=== PATIENT | male | born 1945 | race Caucasian/White ===

== ENCOUNTER 2016-07-12 19:53 | Emergency (ER) | payer MEDICARE ==
[2016-07-12 20:25] VITALS: BP 137/50
[2016-07-12] MEDS ORDERED: Ipratropium 0.5MG/2.5ML NEB* 0.5 MG/2.5 ML NEB.SOLN INH ONE (20:40)
[2016-07-12] MEDS ORDERED: DOXYcycline CAP(*) 100 MG PO ONE (20:40)
[2016-07-12] MEDS ORDERED: methylPREDNISolone 125 MG* 2 ML VIAL IM ONE (20:40)
--- NOTE | 2016-07-12 20:40 | UC ---
Respiratory Complaint HPI - History of Current Complaint Chief Complaint: UCRespiratory Stated Complaint: COUGH Time Seen by Provider: 07/12/16 20:30 Hx Obtained From: Patient Onset/Duration: Sudden Onset, Still Present Timing: Constant Severity Initially: Moderate Severity Currently: Severe Character: Cough: Nonproductive Aggravating Factors: Deep Breaths Alleviating Factors: Bronchodilator - home nebulizer Associated Signs And Symptoms: Positive: Dyspnea, Wheezing, URI, Hoarseness - Risk Factors Pseudomonas Risk Factors: Chronic Lung Disease - Allergies/Home Medications Allergies/Adverse Reactions: Allergies Allergy/AdvReac Type Severity Reaction Status Date / Time Penicillins Allergy Unknown See Comment Verified 07/12/16 20:25 Home Medications: Home Medications Menthol (Mouth-Throat) [Cough Drops] 7 mg MT DAILY PRN 07/12/16 [History Confirmed 07/12/16] Probiotic Product [Probiotic Daily] 1 cap PO DAILY 07/12/16 [History Confirmed 07/12/16] PMH/Surg Hx/FS Hx/Imm Hx Respiratory History Of: Reports: COPD, Asthma GI/ History Of: Comment Only: Renal Disease - Too much Protein - Surgical History Surgical History: Yes Surgery Procedure, Year, and Place: 1999 lower back surgery - Family History Known Family History: Negative: Cardiac Disease, Hypertension, Diabetes - Social History Occupation: Retired Lives: With Family Alcohol Use: Rare Substance Use Type: None Smoking Status (MU): Former Smoker Amount Used/How Often: 1 ppd Length of Time of Smoking/Using Tobacco: 56 YRS Have You Smoked in the Last Year: Yes When Did the Patient Quit Smoking/Using Tobacco: 06/17/14 Review of Systems ENT: Sore Throat Respiratory: Shortness Of Breath, Cough All Other Systems Reviewed And Are Negative: Yes Physical Exam Triage Information Reviewed: Yes Appearance: No Pain Distress, Well-Nourished, Ill-Appearing Vital Signs: Initial Vital Signs Temp 98.9 F 07/12/16 20:18 Pulse 92 07/12/16 20:18 Resp 16 07/12/16 20:18 BP 137/50 07/12/16 20:18 Pulse Ox 93 07/12/16 20:18 Vital Signs Reviewed: Yes Eyes: Positive: Conjunctiva Clear ENT: Positive: Pharynx normal, Nasal congestion, TMs normal Neck exam: Normal Respiratory: Positive: Rhonchi - scattered inspiratory, Wheezing - diffuse exp. Cardiovascular Exam: Normal Musculoskeletal Exam: Normal Neurological Exam: Normal Psychological Exam: Normal Skin Exam: Normal UC Diagnostic Evaluation - Laboratory O2 Sat by Pulse Oximetry: 93 Re-Evaluation - Re-Evaluation First Eval Re-Evaluation Time: 21:16 Change: Improved - moving air better. Less wheezing Respiratory Course/Dx - Differential Dx/Diagnosis Differential Diagnosis/HQI/PQRI: Asthma, Exacerbation Of COPD, Lower Resp Infection Provider Diagnoses: COPD with acute exacerbation Discharge - Discharge Plan Condition: Stable Disposition: HOME Prescriptions: Benzonatate 200 mg PO TID PRN #30 cap PRN Reason: Cough DOXYcycline CAP(*) [DOXYcycline 100MG CAP(*)] 100 mg PO BID #20 cap Ipratropium 0.5MG/2.5ML NEB* [Atrovent 0.5 MG NEB.FELIPA*] 0.5 mg INH Q6H PRN #25 vial PRN Reason: Sob/Wheezing predniSONE TAB* [Deltasone TAB*] 20 mg PO DAILY #18 tab Patient Education Materials: COPD (Chronic Obstructive Pulmonary Disease) (ED) , Prednisone (By mouth), Doxycycline (By mouth), Ipratropium (By breathing), Benzonatate (By mouth) Referrals: Tigist Diaz PA [Primary Care Provider] - 2 Weeks
[2016-07-12] MEDS ORDERED: Benzonatate CAP* 100 MG PO ONE (20:42)
[2016-07-12] MEDS ORDERED: DOXYcycline CAP(*) 100 MG ONE (20:46)
== END 2016-07-12 21:36 | disposition home or self-care (01) ==
LOC: UCCORT 19:53
DX: J44.1 Chronic obstructive pulmonary disease with (acute) exacerbation (principal); Z88.0 Allergy status to penicillin; Z87.891 Personal history of nicotine dependence
CPT/HCPCS: 96372; 99212; A9270-GY; G0463; J2930; J7644

== ENCOUNTER 2017-07-12 08:24 | Day surgery (SDC) | payer MEDICARE ==
[~2017-07-12 08:24] MED LIST: Bupivacaine 0.25% SDV* 30 ML ONE
[2017-07-12] MEDS ORDERED: Bupivacaine 0.25% SDV* 30 ML ONE (10:07)
[2017-07-12] MEDS ORDERED: Lidocaine 1% INJ* 10 MG/ML 30 ML SDV ONE (10:07)
[2017-07-12 10:55] VITALS: BP 123/63
--- NOTE | 2017-07-13 14:48 | OP ---
DATE OF OPERATION: 07/12/17 - [facility] DATE OF : 41 SURGEON: Sherif Hill MD ANTENNA INSTALLER: IRAIS Shafer ANESTHESIOLOGIST: None. ANESTHESIA: Local with digital block performed via 0.25% plain Marcaine. PRE-OP DIAGNOSIS: Left long finger mass. POST-OP DIAGNOSIS: Left long finger mass. OPERATIVE PROCEDURE: Excision of left long finger mass. INDICATIONS: Wilmer has had the mass that has slowly enlarged over the last couple of years. It is over the dorsal radial aspect of the PIP joint. I talked to him about the options of what it could be, including ganglion cyst versus other masses. He wanted to proceed with mass excision as it was quite large. ESTIMATED BLOOD LOSS: 1 mL. COMPLICATIONS: None. FINDINGS: As expected. DESCRIPTION OF PROCEDURE: Wilmer was seen in the preoperative holding area. We had a time-out. I performed a digital block with 0.25% plain Marcaine. We came back to the operating room. The arm was prepped and draped in the usual sterile fashion. A time-out was performed. I exsanguinated the finger with the Tourni-Cot and this was left proximally as a tourniquet throughout the procedure. I made a curvilinear incision over the dorsal radial aspect of the PIP joint of the left middle finger. Skin flap was raised off of the mass. It did have the appearance of a ganglion. A marginal excision was performed. It was taken right down to that dorsal radial aspect of the PIP joint and it was amputated where it came off of the joint. I cauterized the area with the bipolar cautery. Once it was completely cauterized , I had him open and close the hand multiple times. The finger was moving normally. Wound was irrigated out. Skin was closed with 4-0 nylon suture. It was dressed with Xeroform, 1 inch Monique, and Coban dressing. Tourniquet was cut off. Finger pinked up. He was taken to the recovery room in stable condition. [id number]/[facility] #: [id number] MTDD
== END 2017-07-12 11:11 | disposition home or self-care (01) ==
LOC: OR 08:24
PROVIDERS: ATTEND Orthopaedic Surgery Hand Surgery
DX: M67.442 Ganglion, left hand (principal); J44.9 Chronic obstructive pulmonary disease, unspecified; K57.92 Diverticulitis of intestine, part unspecified, without perforation or abscess without bleeding; Z87.891 Personal history of nicotine dependence
CPT/HCPCS: 88304

== ENCOUNTER 2019-04-13 13:27 | Emergency (ER) | payer MEDICARE ==
--- OUTSIDE RECORDS SUMMARY | 2019-04-13 13:59 | XMS REPORT | Continuity of Care Document ---
:1945 External Reference #:[id number] Author Name IRAIS Estrada (transmitted by agent of provider Akash Jorge) Address [address] [place] [address] Care Team Providers Name Role Phone Tigist Diaz PA - Physician Parts Interpreter Care Team Information Netbackup Administrator [phone] Tigist Diaz PA - Physician Parts Interpreter Care Team Information Netbackup Administrator [phone] David Fernandez M.D. - Internal Care Team Information Netbackup Administrator [phone] Medicine Problems Active Problems Provider Date Chronic obstructive lung disease Onset: 07/28/2016 Gout Onset: 01/08/2012 Arthralgia of the ankle and/or foot Onset: 01/08/2012 Osteomyelitis Onset: 01/08/2012 Diverticulitis of colon Onset: 01/08/2012 Hematuria syndrome Onset: 01/08/2012 Benign prostatic hypertrophy without Onset: 01/08/2012 outflow obstruction Atopic dermatitis IRAIS Estrada Onset: 08/29/2018 Type 2 diabetes mellitus IRAIS Estrada Onset: 08/29/2018 Impacted cerumen IRAIS Estrada Onset: 08/29/2018 Diarrhea IRAIS Estrada Onset: 08/29/2018 Candidiasis IRAIS Estrada Onset: 08/29/2018 Sleep apnea IRAIS Estrada Onset: 08/29/2018 Cholesteatoma of external ear Sudhakar Elizabeth M.D. Onset: 10/11/2018 Leukoplakia of oral mucosa Sudhakar Elizabeth M.D. Onset: 10/11/2018 Proteinuria IRAIS Estrada Onset: 11/29/2018 Social History Type Date Description Comments Sex Unknown Tobacco Use Start: Unknown End: Former Cigarette Smoker Unknown Tobacco Use Start: Unknown End: Former Cigarette Smoker Unknown 1 Pack Daily Cigarette Use Pack Years - 53 Tobacco Use Start: Unknown Never Smoked Cigars Tobacco Use Start: Unknown Never Smoked A Pipe Smokeless Tobacco Never Used Smokeless Tobacco ETOH Use Drinks Alcoholic Beverages Occasionally ETOH Use Denies alcohol use Tobacco Use Start: Unknown End: Patient is a former Unknown smoker Recreational Drug Use Denies Drug Use Tobacco Use Start: Unknown End: Patient is a former Start Date: 1959 Unknown smoker End Date: 06/17/2014 Recreational Drug Use Never Used Drugs Smoking Status Reviewed: 02/22/19 Patient is a former Start Date: 1959 smoker End Date: 06/17/2014 Exercise Type/Frequency Does not exercise Exercise Type/Frequency Exercises rarely Allergies, Adverse Reactions, Alerts Active Allergies Reaction Severity Comments Date [facility] 06/24/2018 Medications Active Medications SIG Qnty Indications Ordering Date Provider Lisinopril 1 by mouth every 90Tablet E11.9 [place] 11/29/2018 2.5mg day MD Dianne Tablets Pravastatin Sodium 1 by mouth every 90tabs E11.9 [place] 11/29/2018 10mg day MD Dianne Tablets Neomycin/Polymyxin/Hy 5 gtts Left ear 10ml [facility] 10/25/2018 drocortisone (Otic) bid Edie Elizabeth [id number] Solution Cholestyramine Take One Packet 120units K31.89 [place] 12/27/2017 4gm Mixed In Fluid By MD Dianne Packet Mouth Once Daily For 2 Weeks, Then One Packet Twice A Day Mometasone Furoate apply to affected 45units L30.[address] [facility] 11/24/2016 0.1% area twice a day Edie Elizabeth Cream for 5- 7 days as needed for dermatitis Omeprazole 1 by mouth every 90caps Mo 08/28/2015 20mg day MD Dianne Capsules DR Albuterol Sulfate via neb four 50units Dianne, 08/28/2014 times a day & as MD Mo (2.5mg/3ML) 0.083% needed Nebulizer Fluticasone 2 puffs each nare 1units J30.89 Dianne, 04/30/2014 Propionate every in the MD Mo 50mcg/Act morning Suspension Allopurinol 1 by mouth every 30tabs M10.9 Dianne, 12/28/2011 300mg day MD Mo Tablets Ipratropium [place] Inhale 1 Vial Via Unknown Nebulizer Every 6 0.02% Solution Hours as Needed For Wheezing For Terazosin HCL Take One Capsule Unknown 5mg By Mouth Every Capsules Day Finasteride Take One Tablet Unknown 5mg Tablets By Mouth Every Day History Medications Diflucan 1 by mouth every 3tabs Mo Dean, 09/14/2018 - 150mg day 10/08/2018 Tablets Nystatin one teaspoon each 473ml B37.89 Mo Dean, 08/29/2018 - side of mouth 10/08/2018 [id number] three times day Suspension swished and swallowed as directed for thrush Immunizations CPT Code Status Date Vaccine Lot # [id number] Given 04/30/2014 Pneumococcal Conjugate Vaccine 13 Valent For Intramuscular Use 34859 Given 01/02/2008 Tetanus And Diptheria (Td) For Adult Use Preservative Free [id number] Refused 04/14/2018 Fluzone High Dose Vital Signs Date Vital Result Comment 02/22/2019 9:21am Weight 228.19 lb BP Systolic Sitting 118 mmHg BP Diastolic Sitting 58 mmHg 12/27/2018 9:16am Height 68 inches 5'8" Weight 230.00 lb Heart Rate 70 /min BP Systolic 138 mmHg BP Diastolic 70 mmHg Pain Level 0 BMI (Body Mass Index) 35.0 kg/m2 Results Test Date Facility Test Result H/L Range Note Basic Metabolic 02/16/2019 [facility] Sodium 141 mmol/L Normal 135-145 Panel [address] [place] [address] [phone] Potassium 4.3 mmol/L Normal 3.5-5.0 Chloride 106 mmol/L Normal 101-111 Co2 Carbon Dioxide 30 mmol/L Normal 22-32 Anion Gap 5 mmol/L Normal 2-11 Glucose 129 mg/dL High 70-100 Blood Urea Nitrogen 18 mg/dL Normal 6-24 Creatinine 1.04 mg/dL Normal 0.67-1.17 BUN/Creatinine Ratio 17.3 Normal 8-20 Calcium 9.0 mg/dL Normal 8.6-10.3 Egfr Non- 69.6 >60 Egfr 84.2 >60 1 Urine Microalbumin 02/16/2019 [facility] Ur Microalbumin 21.3 mg /L Random [address] (mg/L) [place] [address] [phone] Urine Creatinine 111.12 mg/dL Urine Microalbumin/Creatinine 19.1 Normal <31 Lipid Profile 02/16/2019 [facility] Triglycerides 138 mg/dL 2 (Trig/Chol/HDL) [address] [place] [address] [phone] Cholesterol 136 mg/dL 3 HDL Cholesterol 36.3 mg/dL 4 LDL Cholesterol 72 mg/dL 5 Liver Function 02/16/2019 [facility] Total Protein 6.4 g/dL Normal 6.4-8.[address] [place] [address] [phone] Albumin 4.0 g/dL Normal 3.2-5.2 Globulin 2.4 g/dL Normal 2-4 Albumin/Globulin Ratio 1.7 Normal 1-3 Total Bilirubin 0.40 mg/dL Normal 0.2-1.0 Direct Bilirubin 0.10 mg/dL Normal 0.03-0.18 Indirect Bilirubin 0.3 mg/dL Normal 0.3-1.0 Alkaline Phosphatase 89 U/L Normal 34-104 Alt 15 U/L Normal 7-52 Ast 12 U/L Low 13-39 Basic Metabolic 11/22/2018 [facility] Sodium 139 mmol/L Normal 135-[address] [place] [address] [phone] Potassium 4.3 mmol/L Normal 3.5-5.0 Chloride 106 mmol/L Normal 101-111 Co2 Carbon Dioxide 27 mmol/L Normal 22-32 Anion Gap 6 mmol/L Normal 2-11 Glucose 134 mg/dL High 70-100 Blood Urea Nitrogen 20 mg/dL Normal 6-24 Creatinine 1.12 mg/dL Normal 0.67-1.17 BUN/Creatinine Ratio 17.9 Normal 8-20 Calcium 9.1 mg/dL Normal 8.6-10.3 Egfr Non- 63.9 >60 Egfr 77.3 >60 6 CBC Auto 11/22/2018 [facility] White Blood 10.2 10^3/uL Normal 3.5-10.[address] [place] [address] [phone] Red Blood Count 4.50 10^6/uL Normal 4.18-5.48 Hemoglobin 13.6 g/dL Low 14.0-18.0 Hematocrit 41 % Low 42-52 Mean Corpuscular Volume 92 fL Normal 80-94 Mean Corpuscular Hemoglobin 30 pg Normal 27-31 Mean Corpuscular HGB Conc 33 g/dL Normal 31-36 Red Cell Distribution Width 15 % Normal 10.5-15 Platelet Count 227 10^3/uL Normal 150-450 Mean Platelet Volume 10.6 fL High 7.4-10.4 Abs Neutrophils 7.4 10^3/uL Normal 1.5-7.7 Abs Lymphocytes 1.5 10^3/uL Normal 1.0-4.8 Abs Monocytes 0.9 10^3/uL High 0-0.8 Abs Eosinophils 0.3 10^3/uL Normal 0-0.6 Abs Basophils 0.0 10^3/uL Normal 0-0.2 Abs Nucleated RBC 0.0 10^3/uL Granulocyte % 72.5 % Lymphocyte % 15.1 % Monocyte % 8.8 % Eosinophil % 3.3 % Basophil % 0.3 % Nucleated Red Blood Cells % 0.1 Laboratory test 11/22/2018 [facility] Hemoglobin A1c 6.8 % High 4.0-5.6 7 finding 101 (Glyco HGB) [place] [address] [phone] Liver Function 11/22/2018 [facility] Total Protein 6.4 g/dL Normal 6.4-8.9 Panel [address] [place] [address] [phone] Albumin 4.0 g/dL Normal 3.2-5.2 Globulin 2.4 g/dL Normal 2-4 Albumin/Globulin Ratio 1.7 Normal 1-3 Total Bilirubin 0.40 mg/dL Normal 0.2-1.0 Direct Bilirubin 0.10 mg/dL Normal 0.03-0.18 Indirect Bilirubin 0.3 mg/dL Normal 0.3-1.0 Alkaline Phosphatase 93 U/L Normal 34-104 Alt 15 U/L Normal 7-52 Ast 14 U/L Normal 13-39 Lipid Profile 11/22/2018 [facility] Triglycerides 103 mg/dL 8 (Trig/Chol/HDL) [address] [place] [address] [phone] Cholesterol 141 mg/dL 9 HDL Cholesterol 39.7 mg/dL 10 LDL Cholesterol 81 mg/dL 11 Urine Microalbumin 11/22/2018 [facility] Ur Microalbumin 45.5 mg /L Random [address] (mg/L) [place] [address] [phone] Urine Creatinine 114.68 mg/dL Urine Microalbumin/Creatinine 39.6 High <31 Uric Acid 24HR Urine 11/22/2018 [facility] Uric Acid, U 147 mg/ 24h [address] [place] [address] [phone] Collection Duration 24 h Urine Volume 775 mL Uric Acid Concentration 19 mg/dL 13 1 Because ethnic data is not always readily available, this report includes an eGFR for both -Americans and non- Americans. The National Kidney Disease Education Program (NKDEP) does not endorse the use of the MDRD equation for patients that are not between the ages of 18 and 70, are , have extremes of body size, muscle mass, or nutritional status, or are non- or non-. According to the National Kidney Foundation, irrespective of diagnosis, the stage of the disease is based on the level of kidney function: Stage Description GFR(mL/min/1.73 m(2)) 1 Kidney damage with normal or decreased GFR 90 2 Kidney damage with mild decrease in GFR 60-89 3 Moderate decrease in GFR 30-59 4 Severe decrease in GFR 15-29 5 Kidney failure <15 (or dialysis) 2 Desirable: <150 Borderline High: 150-199 High: 200-499 Very High: >500 3 Desirable: <200 Borderline High: 200-239 High: >239 4 Low: <40 Desirable: 40-60 High: >60 5 Desirable: <100 Near Optimal: 100-129 Borderline High: 130-159 High: 160-189 Very High: >189 6 Because ethnic data is not always readily available, this report includes an eGFR for both -Americans and non- Americans. The National Kidney Disease Education Program (NKDEP) does not endorse the use of the MDRD equation for patients that are not between the ages of 18 and 70, are , have extremes of body size, muscle mass, or nutritional status, or are non- or non-. According to the National Kidney Foundation, irrespective of diagnosis, the stage of the disease is based on the level of kidney function: Stage Description GFR(mL/min/1.73 m(2)) 1 Kidney damage with normal or decreased GFR 90 2 Kidney damage with mild decrease in GFR 60-89 3 Moderate decrease in GFR 30-59 4 Severe decrease in GFR 15-29 5 Kidney failure <15 (or dialysis) 7 Therapeutic target for the treatment of diabetes mellitus patients is <7% HBA1C, and in selective patients <6.0%. Please refer to [place] [employer] Association diabetic care guidelines for further information. 8 Desirable: <150 Borderline High: 150-199 High: 200-499 Very High: >500 9 Desirable: <200 Borderline High: 200-239 High: >239 10 Low: <40 Desirable: 40-60 High: >60 11 Desirable: <100 Near Optimal: 100-129 Borderline High: 130-159 High: 160-189 Very High: >189 12 REFERENCE VALUE <750 (Diet-Dependent) ADDITIONAL INFORMATION This test has been modified from the curb machine operator's instructions. Its performance characteristics were determined by [facility] in a manner consistent with CLIA requirements. This test has not been cleared or approved by the U.S. Food and Drug Administration. The reference value is for a 24-hour collection. Specimens collected for other than a 24-hour time period are reported in unit of mg/dL for which reference values are not established. 13 Test Performed by: [address] [address] Procedures Date Code Description Status 12/27/2018 30302 Remove Impacted Cerumen Completed 04/24/2009 12092566 Colonoscopy Completed Medical Devices Description No Information Available Encounters Type Date Location Provider Dx Diagnosis Office Visit 12/27/2018 [facility] H60.42 Cholesteatoma of left 9:15a [facility] [place], M.D. 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 H60.42 Cholesteatoma of 9:15a Of [facility]. left external ear Sebastian Office Visit 10/25/[address] [facility] H60.42 Cholesteatoma of 9:15a Of [facility]. left external ear [place] Office Visit 10/11/[address] [facility] H60.42 Cholesteatoma of 9:15a Of [facility]. 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 H60.42 Cholesteatoma of 9:30a Of [facility]. left external ear [place] H90.12 Condctv hear loss, uni, left ear, w unrestr hear cntra side Office Visit 08/29/2018 9:00a [facility] IRAIS Estrada E11.9 Type 2 diabetes Care mellitus without complications B37.89 Other sites of candidiasis J44.9 Chronic obstructive pulmonary disease, unspecified L20.9 Atopic dermatitis, unspecified N40.1 Benign prostatic hyperplasia with lower urinary tract symp H61.22 Impacted cerumen, left ear M10.00 Idiopathic gout, unspecified site R19.7 Diarrhea, unspecified Assessments Date Code Description Provider 02/22/2019 E11.9 Type 2 diabetes mellitus without IRAIS Estrada complications 02/22/2019 J44.9 Chronic obstructive pulmonary disease, IRAIS Estrada unspecified 02/22/2019 K13.21 Leukoplakia of oral mucosa, including IRAIS Estrada tongue 02/22/2019 H60.42 Cholesteatoma of left external ear IRAIS Estrada 02/22/2019 M10.9 Gout, unspecified IRAIS Estrada 02/22/2019 E78.49 Other hyperlipidemia IRAIS Estrada 12/27/2018 H60.42 Cholesteatoma of left external ear Sudhakar Clara, M.D. 12/27/2018 K13.21 Leukoplakia of oral mucosa, including Sudhakarstephani Winterselia, M.D. tongue 12/27/2018 H61.23 Impacted cerumen, bilateral Sudhakar Elizabeth, M.D. 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 10/25/2018 H60.42 Cholesteatoma of left external ear Sudhakar [place]up[place], M.D. 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 09/06/2018 H90.12 Conductive hearing loss, unilateral, left Sudhakar Elizabeth M.D. ear, with unrestri 08/29/2018 E11.9 Type 2 diabetes mellitus without IRAIS Estrada complications 08/29/2018 B37.89 Other sites of candidiasis IRAIS Estrada 08/29/2018 J44.9 Chronic obstructive pulmonary disease, IRAIS Estrada unspecified 08/29/2018 L20.9 Atopic dermatitis, unspecified IRAIS Estrada 08/29/2018 N40.1 Benign prostatic hyperplasia with lower IRAIS Estrada urinary tract sympto 08/29/2018 H61.22 Impacted cerumen, left ear IRAIS Estrada 08/29/2018 M10.00 Idiopathic gout, unspecified site IRAIS Estrada 08/29/2018 R19.7 Diarrhea, unspecified IRAIS Estrada Plan of Treatment Future Appointment(s):05/31/2019 9:30 am - IRAIS Estrada at [facility]/2018 - Tigist Diaz PAE11.9 Type 2 diabetes mellitus without complicationsNew Labs:Basic Metabolic Panel, Ordered: 02/22/19Hemoglobin A1c (Glyco HGB), Ordered : 02/22/19Follow up:8hppxfG49.9 Chronic obstructive pulmonary disease, negemzwdeiyU31.21 Leukoplakia of oral mucosa, including slirlsB38.42 Cholesteatoma of left external earM10.9 Gout, yygagokimqyZ13.49 Other hyperlipidemia Functional Status Functional Condition Comment Date Status Nebulizer - q 2-4 x per day, Cpap/Apap Machine, Bifocal Active glasses Mental Status Description No Information Available Referrals Refer to Dr Reason for Referral Status Appt Date John Soto MD Closed 09/06/2018 [facility] [place] [address] [phone]
--- OUTSIDE RECORDS SUMMARY | 2019-04-13 13:59 | XMS REPORT | Continuity of Care Document ---
:1945 External Reference #:[id number] Author Name Sudhakar Elizabeth M.D. (transmitted by agent of provider Sergio Thornton) Address [address] [place] [id number] Care Team Providers Name Role Phone Tigist Diaz PA - Physician Veterinary Pathologist Care Team Information Typewriter Mechanic [phone] Tigist Diaz PA - Physician Veterinary Pathologist Care Team Information Typewriter Mechanic David Fernandez M.D. - Internal Care Team Information Typewriter Mechanic [phone] Medicine Problems Active Problems Provider Date Chronic [...] Estrada Onset: 08/29/2018 Cholesteatoma of external ear Sudahkar Elizabeth M.D. Onset: 10/11/2018 Leukoplakia of oral [...] Use Never Used Drugs Smoking Status Reviewed: 02/28/19 Patient is a former Start Date: 1959 smoker End Date: 06/17/2014 Exercise Type/Frequency Does not exercise Exercise Type/Frequency Exercises rarely Allergies, Adverse Reactions, Alerts Active Allergies Reaction Severity Comments Date [facility] 06/24/2018 Medications Active Medications SIG Qnty Indications Ordering Date Provider Lisinopril 1 by mouth every 90Tablet E11.9 [place] 11/29/2018 2.5mg day MD Dianne Tablets Pravastatin Sodium 1 by mouth every 90tabs E11.9 [place] 11/29/2018 10mg day MD Dianne Tablets Neomycin/Polymyxin/Hy 5 gtts Left ear 10ml [facility] 10/25/2018 drocortisone (Otic) bid Edie Elizabeth [id number] Solution Cholestyramine Take One Packet 120units K31.89 [place] 12/27/2017 4gm Mixed In Fluid By MD Dianne Packet Mouth Once Daily For 2 Weeks, Then One Packet Twice A Day Mometasone Furoate apply to affected 45units L30.9 [facility] 11/24/2016 0.1% area twice a day Edie Elizabeth Cream for 5- 7 days as needed for dermatitis Omeprazole 1 by mouth every 90caps Mo 08/28/2015 20mg day MD Dianne Capsules Albuterol Sulfate via neb four 50units Dianne, 08/28/2014 times a day & as MD Mo (2.5mg/3ML) 0.083% needed Nebulizer Fluticasone 2 puffs each nare 1units J30.89 Dianne, 04/30/2014 Propionate every in the MD Mo 50mcg/Act morning Suspension Allopurinol 1 by mouth every 30tabs M10.9 Dianne, 12/28/2011 300mg day MD Mo Tablets Ipratropium [place] Inhale 1 Vial Via Unknown Nebulizer Every [...] Dean, 08/29/2018 - side of mouth 10/08/2018 [id number] three times day Suspension swished and swallowed as directed for thrush Immunizations CPT Code Status Date Vaccine Lot # 61810 Given 04/30/2014 Pneumococcal Conjugate Vaccine 13 Valent For Intramuscular Use 75230 Given 01/02/2008 Tetanus And Diptheria (Td) For Adult Use Preservative Free 24128 Refused 04/14/2018 Fluzone High Dose Vital Signs Date Vital Result Comment 02/28/2019 11:37am Height 68 inches 5'8" Weight 230.00 lb Heart Rate 75 /min BP Systolic Sitting 128 mmHg BP Diastolic Sitting 74 mmHg Respiratory Rate 20 /min Pain Level 0 O2 % BldC Oximetry 93 % BMI (Body Mass Index) 35.0 kg/m2 02/22/2019 9:21am Weight 228.19 lb BP Systolic Sitting 118 mmHg BP Diastolic Sitting 58 mmHg Results Test Date Facility Test Result H/L Range Note Basic Metabolic 02/16/2019 [facility] Sodium 141 mmol/L Normal 135-145 [address] [place] [address] [phone] Potassium 4.3 mmol/L Normal 3.5-5.0 Chloride 106 mmol/L Normal 101-111 Co2 Carbon Dioxide 30 mmol/L Normal 22-32 Anion Gap 5 mmol/L Normal 2-11 Glucose 129 mg/dL High 70-100 Blood Urea Nitrogen 18 mg/dL Normal 6-24 Creatinine 1.04 mg/dL Normal 0.67-1.17 BUN/Creatinine Ratio 17.3 Normal 8-20 Calcium 9.0 mg/dL Normal 8.6-10.3 Egfr Non- 69.6 >60 Egfr 84.2 >60 1 Urine Microalbumin 02/16/2019 [facility] Ur Microalbumin 21.3 mg /L Random (mg/L) [place] [address] [phone] Urine Creatinine 111.12 mg/dL Urine Microalbumin/Creatinine 19.1 Normal <31 Lipid Profile 02/16/2019 [facility] Triglycerides 138 mg/dL 2 (Trig/Chol/HDL) [address] [place] [address] [phone] Cholesterol 136 mg/dL 3 HDL Cholesterol 36.3 mg/dL 4 LDL Cholesterol 72 mg/dL 5 Liver Function 02/16/2019 [facility] Total Protein 6.4 g/dL Normal 6.4-8.9 Panel [address] [place] [address] [phone] Albumin 4.0 g/dL Normal 3.2-5.2 Globulin 2.4 g/dL Normal 2-4 Albumin/Globulin Ratio 1.7 Normal 1-3 Total Bilirubin 0.40 mg/dL Normal 0.2-1.0 Direct Bilirubin 0.10 mg/dL Normal 0.03-0.18 Indirect Bilirubin 0.3 mg/dL Normal 0.3-1.0 Alkaline Phosphatase 89 U/L Normal 34-104 Alt 15 U/L Normal 7-52 Ast 12 U/L Low 13-39 Basic Metabolic 11/22/2018 [facility] Sodium 139 mmol/L Normal 135-145 [place] [address] [phone] Potassium 4.3 mmol/L Normal 3.5-5.0 Chloride 106 mmol/L Normal 101-111 Co2 Carbon Dioxide 27 mmol/L Normal 22-32 Anion Gap 6 mmol/L Normal 2-11 Glucose 134 mg/dL High 70-100 Blood Urea Nitrogen 20 mg/dL Normal 6-24 Creatinine 1.12 mg/dL Normal 0.67-1.17 BUN/Creatinine Ratio 17.9 Normal 8-20 Calcium 9.1 mg/dL Normal 8.6-10.3 Egfr Non- 63.9 >60 Egfr 77.3 >60 6 CBC Auto 11/22/2018 [facility] White Blood 10.2 10^3/uL Normal 3.5-10.[address] [place] [address] [phone] Red Blood Count 4.50 10^6/uL Normal 4.18-5.48 [...] Blood Cells % 0.1 Laboratory test 11/22/2018 [facility] Hemoglobin A1c 6.8 % High 4.0-5.[address] (Glyco HGB) [place] [address] [phone] Liver Function 11/22/2018 [facility] Total Protein 6.4 g/dL Normal 6.4-8.[address] [place] [address] [phone] Albumin 4.0 g/dL Normal 3.2-5.2 Globulin 2.4 g/dL Normal 2-4 Albumin/Globulin Ratio 1.7 Normal 1-3 Total Bilirubin 0.40 mg/dL Normal 0.2-1.0 Direct Bilirubin 0.10 mg/dL Normal 0.03-0.18 Indirect Bilirubin 0.3 mg/dL Normal 0.3-1.0 Alkaline Phosphatase 93 U/L Normal 34-104 Alt 15 U/L Normal 7-52 Ast 14 U/L Normal 13-39 Lipid Profile 11/22/2018 [facility] Triglycerides 103 mg/dL 8 (Trig/Chol/HDL) [address] [place] [address] [phone] Cholesterol 141 mg/dL 9 HDL Cholesterol 39.7 mg/dL 10 LDL Cholesterol 81 mg/dL 11 Urine Microalbumin 11/22/2018 [facility] Ur Microalbumin 45.5 mg /L Random [address] (mg/L) [place], [place] [id number] [phone] Urine Creatinine 114.68 mg/dL Urine Microalbumin/Creatinine 39.6 High <31 Uric Acid 24HR Urine 11/22/2018 [facility] Uric Acid, U 147 mg/ 24h [address] [place] [address] [phone] Collection Duration 24 h Urine Volume 775 [...] in selective patients <6.0%. Please refer to [place] [employer] diabetic care guidelines for further information. 8 Desirable: <150 Borderline High: 150-199 High: 200-499 Very High: >500 9 Desirable: <200 Borderline High: 200-239 High: >239 10 Low: <40 Desirable: 40-60 High: >60 11 Desirable: <100 Near Optimal: 100-129 Borderline High: 130-159 High: 160-189 Very High: >189 12 REFERENCE VALUE <750 (Diet-Dependent) ADDITIONAL INFORMATION This test has been modified from the schedule clerk's instructions. Its performance characteristics were determined by [facility] in a manner consistent with CLIA requirements. This test has not been cleared or approved by the [place]. Food and Drug Administration. The reference value is for a 24-hour collection. Specimens collected for other than a 24-hour time period are reported in unit of mg/dL for which reference values are not established. 13 Test Performed by: [address] [address] Procedures Date Code Description Status 12/27/2018 99126 Remove Impacted Cerumen Completed 04/24/2009 77197866 Colonoscopy Completed Medical Devices Description No Information Available Encounters Type Date Location Provider Dx Diagnosis Office Visit 12/27/2018 [facility] H60.42 Cholesteatoma of left 9:15a 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. left external ear [place] Office Visit 10/25/2018 [facility] H60.42 Cholesteatoma of 9:15a Of [facility] AT [facility]. left external ear [place] Office Visit 10/11/2018 [facility] H60.42 Cholesteatoma of 9:15a Of [facility] 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 AT [facility] left external ear [place] H90.12 Condctv hear loss, uni, left ear, w unrestr hear cntra side Office Visit 08/29/2018 9:00a [facility] Primary IRAIS Estrada E11.9 Type 2 diabetes [...] of left external ear Sudhakar Ruparelia, M.D. 12/27/2018 K13.21 Leukoplakia of oral mucosa, including Sudhakar Bruceparelia, M.D. tongue 12/27/2018 H61.23 Impacted cerumen, bilateral Sudhakar Ruparelia, M.D. 11/29/2018 J44.9 Chronic obstructive pulmonary disease, [...] K13.21 Leukoplakia of oral mucosa, including Sudhakar Ruparelia, M.D. 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 09/06/2018 H90.12 Conductive hearing loss, unilateral, left Sudhakar Ruparelia, M.D. ear, with unrestri 08/29/2018 E11.9 Type [...] unspecified IRAIS Estrada Plan of Treatment Future Appointment(s):03/14/2019 1:15 pm [facility] 9:30 am - IRAIS Estrada at [facility]11/15/2018 - Sudhakar Elizabeth M.D.H60.42 Cholesteatoma of left external earComments:The cholesteatoma debris was removed today under microscopic visualization the TM appeared intact. I'm going to have him stop the eardrops now, and just use the mometasone topical recheck back 6 weeks. Functional Status Functional Condition Comment Date Status Nebulizer - q 2-4 x per day, Cpap/Apap Machine, Bifocal Active glasses Mental Status Description No Information Available Referrals Refer to Reason for Referral Status Appt Date John Soto MD Closed 09/06/2018 [address] [place] [address] [phone]
--- OUTSIDE RECORDS SUMMARY | 2019-04-13 13:59 | XMS REPORT | Continuity of Care Document ---
:1945 External Reference #:[id number] Author Name Sudhakar Elizabeth M.D. (transmitted by agent of provider Sergio Thornton) Address [address] [place] [phone] Care Team Providers Name Role Phone Tigist Diaz PA - Physician It Senior Analyst Care Team Information Consumer Services Consultant Tigist Diaz PA - Physician It Senior Analyst Care Team Information Consumer Services Consultant David Fernandez M.D. - Internal Care Team Information Consumer Services Consultant [phone] Medicine Problems Active Problems Provider Date Chronic [...] Alerts Active Allergies Reaction Severity Comments Date [facility] 06/24/2018 Medications Active Medications SIG Qnty Indications Ordering Date Provider Lisinopril 1 by mouth every 90Tablet E11.9 [place] 11/29/2018 2.5mg day MD Dianne Tablets Pravastatin Sodium 1 by mouth every 90tabs E11.9 [place] 11/29/2018 10mg day MD Dianne Tablets Neomycin/Polymyxin/Hy 5 gtts Left ear 10ml [facility] 10/25/2018 drocortisone (Otic) bid Edie Elizabeth [id number] Solution Cholestyramine Take One Packet 120units K31.89 [place] 12/27/2017 4gm Mixed In Fluid By MD Dianne Packet Mouth Once Daily For 2 Weeks, Then One Packet Twice A Day Mometasone Furoate apply to affected 45units L30.9 [facility] 11/24/2016 0.1% area twice a day Edie Elizabeth Cream for 5- 7 days as needed for dermatitis Omeprazole Take One Capsule 90caps [place] 08/28/2015 20mg By Mouth Every MD Dianne Capsules DR Day Albuterol Sulfate via neb four 50units Dianne, 08/28/2014 times a day & as MD Mo (2.5mg/3ML) 0.083% needed Nebulizer Fluticasone 2 puffs each nare 1units J30.89 Dianne, 04/30/2014 Propionate every in the MD Mo 50mcg/Act morning Suspension Allopurinol 1 by mouth every 30tabs M10.9 Dianne, 12/28/2011 300mg day MD Mo Tablets Ipratropium [place] Inhale 1 Vial Via Unknown Nebulizer Every 6 0.02% Solution Hours as Needed For Wheezing For Terazosin HCL Take One Capsule Unknown 5mg By Mouth Every Capsules Day Finasteride Take One Tablet Unknown 5mg Tablets By Mouth Every Day History Medications Diflucan 1 by mouth every 3tabs Mo Dean MD 09/14/2018 - 150mg day 10/08/2018 Tablets Immunizations CPT Code Status Date Vaccine Lot # 10961 Given 04/30/2014 Pneumococcal Conjugate Vaccine 13 Valent For Intramuscular Use 93537 Given 01/02/2008 Tetanus And Diptheria (Td) For Adult Use Preservative Free 86408 Refused 04/14/2018 Fluzone High Dose Vital Signs Date Vital Result Comment 03/14/2019 1:21pm Height 68 inches 5'8" Weight 230.00 lb Heart Rate 75 /min BP Systolic 122 mmHg BP Diastolic 74 mmHg Respiratory Rate 18 /min Pain Level 0 BMI (Body Mass Index) 35.0 kg/m2 02/28/2019 11:37am Height 68 inches 5'8" Weight 230.00 lb Heart Rate 75 /min BP Systolic Sitting 128 mmHg BP Diastolic Sitting 74 mmHg Respiratory Rate 20 /min Pain Level 0 O2 % BldC Oximetry 93 % BMI (Body Mass Index) 35.0 kg/m2 Results Test Date Facility Test Result H/L Range Note Laboratory test 02/28/2019 [facility] Surgical SEE RESULT [address] [place] [address] [phone] Basic Metabolic 02/16/2019 [facility] Sodium 141 mmol/L Normal 135-[address] [place] [address] [phone] Potassium 4.3 mmol/L Normal 3.5-5.0 Chloride 106 mmol/L Normal 101-111 Co2 Carbon Dioxide 30 mmol/L Normal 22-32 Anion Gap 5 mmol/L Normal 2-11 Glucose 129 mg/dL High 70-100 Blood Urea Nitrogen 18 mg/dL Normal 6-24 Creatinine 1.04 mg/dL Normal 0.67-1.17 BUN/Creatinine Ratio 17.3 Normal 8-20 Calcium 9.0 mg/dL Normal 8.6-10.3 Egfr Non- 69.6 >60 Egfr 84.2 >60 2 Urine Microalbumin 02/16/2019 [facility] Ur Microalbumin 21.3 mg /L Random (mg/L) [place] [address] [phone] Urine Creatinine 111.12 mg/dL Urine Microalbumin/Creatinine 19.1 Normal <31 Lipid Profile 02/16/2019 [facility] Triglycerides 138 mg/dL 3 (Trig/Chol/HDL) [place] [address] [phone] Cholesterol 136 mg/dL 4 HDL Cholesterol 36.3 mg/dL 5 LDL Cholesterol 72 mg/dL 6 Liver Function 02/16/2019 [facility] Total Protein 6.4 g/dL Normal 6.4-8.9 [place] [address] [phone] Albumin 4.0 g/dL Normal 3.2-5.2 Globulin 2.4 g/dL Normal 2-4 Albumin/Globulin Ratio 1.7 Normal 1-3 Total Bilirubin 0.40 mg/dL Normal 0.2-1.0 Direct Bilirubin 0.10 mg/dL Normal 0.03-0.18 Indirect Bilirubin 0.3 mg/dL Normal 0.3-1.0 Alkaline Phosphatase 89 U/L Normal 34-104 Alt 15 U/L Normal 7-52 Ast 12 U/L Low 13-39 Basic Metabolic 11/22/2018 [facility] Sodium 139 mmol/L Normal 135-145 Panel [address] [place] [address] [phone] Potassium 4.3 mmol/L Normal 3.5-5.0 Chloride 106 mmol/L Normal 101-111 Co2 Carbon Dioxide 27 mmol/L Normal 22-32 Anion Gap 6 mmol/L Normal 2-11 Glucose 134 mg/dL High 70-100 Blood Urea Nitrogen 20 mg/dL Normal 6-24 Creatinine 1.12 mg/dL Normal 0.67-1.17 BUN/Creatinine Ratio 17.9 Normal 8-20 Calcium 9.1 mg/dL Normal 8.6-10.3 Egfr Non- 63.9 >60 Egfr 77.3 >60 7 CBC Auto 11/22/2018 [facility] White Blood 10.2 10^3/uL Normal 3.5-10.[address] [place] [address] [phone] Red Blood Count 4.50 10^6/uL Normal 4.18-5.48 [...] Blood Cells % 0.1 Laboratory test 11/22/2018 [facility] Hemoglobin A1c 6.8 % High 4.0-5.[address] (Glyco HGB) [place] [address] [phone] Liver Function 11/22/2018 [facility] Total Protein 6.4 g/dL Normal 6.4-8.[address] [place] [address] [phone] Albumin 4.0 g/dL Normal 3.2-5.2 Globulin 2.4 g/dL Normal 2-4 Albumin/Globulin Ratio 1.7 Normal 1-3 Total Bilirubin 0.40 mg/dL Normal 0.2-1.0 Direct Bilirubin 0.10 mg/dL Normal 0.03-0.18 Indirect Bilirubin 0.3 mg/dL Normal 0.3-1.0 Alkaline Phosphatase 93 U/L Normal 34-104 Alt 15 U/L Normal 7-52 Ast 14 U/L Normal 13-39 Lipid Profile 11/22/2018 [facility] Triglycerides 103 mg/dL 9 (Trig/Chol/HDL) [address] [place] [address] [phone] Cholesterol 141 mg/dL 10 HDL Cholesterol 39.7 mg/dL 11 LDL Cholesterol 81 mg/dL 12 Urine Microalbumin 11/22/2018 [facility] Ur Microalbumin 45.5 mg /L Random [address] (mg/L) [place] [address] [phone] Urine Creatinine 114.68 mg/dL Urine Microalbumin/Creatinine 39.6 High <31 Uric Acid 24HR Urine 11/22/2018 [facility] Uric Acid, U 147 mg/ 24h [address] [place] [address] [phone] Collection Duration 24 h Urine Volume 775 mL Uric Acid Concentration 19 mg/dL 14 1 SEE RESULT BELOW Name: LAKEISHA POSEY : [address]: Sudhakar Elizabeth MD Acct: [id number] Unit: [id number] AGE: 73 Location: [facility] Re02/28/19 SEX: M Status: REG REF SPEC: [id number] LISA: 02/28/19-1310 [facility] DR: Sudhakar Elizabeth MD REQ: [id number] RECD: 02/28/19 STATUS: SOUT _ ORDERED: LEVEL 4 COMMENTS: [id number] FINAL DIAGNOSIS Left tongue, 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 CLINICAL HISTORY No history given GROSS DESCRIPTION The specimen is received in formalin with no source identified and a requisition labeled, Left Tongue, and consists of a 0.5 x 0.3 by up to 0.2 cm hampton-white irregular soft tissue fragment which is inked, bisected and submitted entirely in one cassette. Signed by and Reported on: No Marley MD 03/02/19 1040 END OF REPORT DEPARTMENT OF PATHOLOGY, [address] [place] [address] Nain Pederson M.D. Director [facility] # [id number] 2 Because ethnic data is not always readily [...] 15-29 5 Kidney failure <15 (or dialysis) 3 Desirable: <150 Borderline High: 150-199 High: 200-499 Very High: >500 4 Desirable: <200 Borderline High: 200-239 High: >239 5 Low: <40 Desirable: 40-60 High: >60 6 Desirable: <100 Near Optimal: 100-129 Borderline High: 130-159 High: 160-189 Very High: >189 7 Because ethnic data is not always readily [...] 15-29 5 Kidney failure <15 (or dialysis) 8 Therapeutic target for the treatment of diabetes mellitus patients is <7% HBA1C, and in selective patients <6.0%. Please refer to [employer] diabetic care guidelines for further information. 9 Desirable: <150 Borderline High: 150-199 High: 200-499 Very High: >500 10 Desirable: <200 Borderline High: 200-239 High: >239 11 Low: <40 Desirable: 40-60 High: >60 12 Desirable: <100 Near Optimal: 100-129 Borderline High: 130-159 High: 160-189 Very High: >189 13 REFERENCE VALUE <750 (Diet-Dependent) ADDITIONAL INFORMATION This test has been modified from the reporting lead's instructions. Its performance characteristics were determined by [facility] in a manner consistent with CLIA requirements. This test has not been cleared or approved by the U.S. Food and Drug Administration. The reference value is for a 24-hour collection. Specimens collected for other than a 24-hour time period are reported in unit of mg/dL for which reference values are not established. 14 Test Performed by: [address] [address] Procedures Date Code Description Status 02/28/2019 64206 Binocular Microscopy Completed 02/28/2019 51372 biopsy,vestibule of mouth Completed 12/27/2018 10865 Remove Impacted Cerumen Completed 04/24/2009 52638407 Colonoscopy Completed Medical Devices Description No Information Available Encounters Type Date Location Provider Dx Diagnosis Office Visit 02/28/2019 [facility] K13.21 Leukoplakia of oral 11:45a [facility] 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 AT Edie Elizabeth left external ear [place] Office Visit 10/25/2018 [facility] H60.42 Cholesteatoma of 9:15a Of C[facility] AT Edie Elizabeth left external ear [place] Office Visit 10/11/2018 [facility] H60.42 Cholesteatoma of 9:15a Of C.[facility] 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 tongue 02/28/2019 H62.43 Otitis externa in other diseases Sudhakar Elizabeth M.D. classified elsewhere, bilateral 02/28/2019 H92.13 Otorrhea, bilateral Sudhakar Elizabeth M.D. 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 12/27/2018 K13.21 Leukoplakia of oral mucosa, including Sudhakar Elizabeth M.D. tongue 12/27/2018 H61.23 Impacted cerumen, bilateral Sudhakar Elizabeth M.D. 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 10/11/2018 K13.21 Leukoplakia of oral mucosa, including Sudhakar Elizabeth M.D. tongue 10/06/2018 L43.8 Other lichen planus IRAIS Estrada 10/06/2018 J44.9 Chronic obstructive pulmonary disease, IRAIS Estrada unspecified 10/06/2018 K08.89 Other specified disorders of teeth and IRAIS Estrada supporting structures Plan of Treatment Future Appointment(s):04/25/2019 9:30 am - Sudhakar Elizabeth M.D. at [facility] [place]/11/2019 9:30 am - IRA[facility] - Sudhakar Elizabeth M.D.H60.42 Cholesteatoma of left [...] Mental Status Description No Information Available Referrals Description No Information Available
[2019-04-13 14:28] VITALS: BP 118/66
--- NOTE | 2019-04-13 14:47 | UC ---
Respiratory Complaint HPI - HPI Summary HPI Summary: Pt presents with c/o cough, wheezing, and generalized malaise X 2 days. Pt has hx of pneumonia and was a heavy smoker. - History of Current Complaint Chief Complaint: UCGeneralIllness Stated Complaint: COUGH CONGESTION Time Seen by Provider: 04/13/19 14:36 Hx Obtained From: Patient Onset/Duration: Gradual Onset, Lasting Days, Still Present, Worse Since - onset Timing: Constant Severity Initially: Mild Severity Currently: Moderate Pain Intensity: 0 Character: Cough: Nonproductive Aggravating Factors: Exertion, Deep Breaths, Recumbent Position Alleviating Factors: Nothing Associated Signs And Symptoms: Positive: Wheezing, URI, Nasal Congestion Related History: Seasonal Allergies - Risk Factors Pulmonary Embolism Risk Factors: Smoking - hx Cardiac Risk Factors: Smoking - hx of Pseudomonas Risk Factors: Chronic Lung Disease Tuberculosis Risk Factors: Smoking - hx of - Allergies/Home Medications Allergies/Adverse Reactions: Allergies Allergy/AdvReac Type Severity Reaction Status Date / Time Penicillins Allergy See Comment Verified 04/13/19 14:21 Home Medications: Home Medications Lisinopril TAB* [Prinivil TAB 5 MG*] 2.5 mg PO DAILY 04/13/19 [History Confirmed 04/13/19] Pravastatin Sodium 20 mg PO DAILY 04/13/19 [History Confirmed 04/13/19] PMH/Surg Hx/FS Hx/Imm Hx Previously Healthy: Yes Cardiovascular History: Hypertension Respiratory History: COPD - Surgical History Surgical History: Yes Surgery Procedure, Year, and Place: 2000 lower back surgery, LEFT EAR SURG--- 2016 - Family History Known Family History: Negative: Cardiac Disease, Hypertension, Diabetes - Social History Occupation: Retired Lives: With Family Alcohol Use: None Substance Use Type: None Smoking Status (MU): Former Smoker Amount Used/How Often: 1 ppd Length of Time of Smoking/Using Tobacco: 56 YRS Have You Smoked in the Last Year: No When Did the Patient Quit Smoking/Using Tobacco: 06/17/14 Review of Systems All Other Systems Reviewed And Are Negative: Yes Constitutional: Positive: Chills, Fatigue Skin: Positive: Negative Eyes: Positive: Negative ENT: Positive: Sinus Congestion Respiratory: Positive: Shortness Of Breath, Cough Cardiovascular: Positive: Negative Gastrointestinal: Positive: Negative Genitourinary: Positive: Negative Motor: Positive: Negative Neurovascular: Positive: Negative Musculoskeletal: Positive: Negative Neurological: Positive: Negative Psychological: Positive: Negative Is Patient Immunocompromised?: No Physical Exam Triage Information Reviewed: Yes Appearance: Ill-Appearing Vital Signs: Initial Vital Signs Temp 99.3 F 04/13/19 14:22 Pulse 72 04/13/19 14:22 Resp 20 04/13/19 14:22 BP 118/66 04/13/19 14:22 Pulse Ox 95 04/13/19 14:22 Vital Signs Reviewed: Yes Eye Exam: Normal ENT: Positive: Nasal congestion Dental Exam: Normal Neck exam: Normal Respiratory: Positive: Decreased breath sounds, Wheezing Cardiovascular Exam: Normal Musculoskeletal Exam: Normal Neurological Exam: Normal Psychological Exam: Normal Skin Exam: Normal Respiratory Course/Dx - Course Course Of Treatment: Pt states that he has had a chest xray in last 2 weeks. - Differential Dx/Diagnosis Differential Diagnosis/HQI/PQRI: Bronchitis, Exacerbation Of COPD Provider Diagnosis: Wheezing on auscultation, Pneumonia Discharge ED - Sign-Out/Discharge Documenting (check all that apply): Patient Departure All imaging exams completed and their final reports reviewed: No Studies - Discharge Plan Condition: Stable Disposition: HOME Prescriptions: Benzonatate CAP* [Tessalon 100 MG CAP*] 200 mg PO Q8H PRN #30 cap PRN Reason: Cough DOXYcycline CAP(*) [DOXYcycline 100MG CAP(*)] 100 mg PO Q12H #20 cap predniSONE TAB* [Deltasone 20 MG TAB*] 60 mg PO DAILY #12 tab Patient Education Materials: Acute Bronchitis (ED), Wheezing (ED) Referrals: Tigist Diaz PA [Primary Care Provider] - If Needed - Billing Disposition and Condition Condition: STABLE Disposition: Home
== END 2019-04-13 14:58 | disposition home or self-care (01) ==
LOC: UCCORT 13:27
DX: J18.9 Pneumonia, unspecified organism (principal); R06.2 Wheezing; I10 Essential (primary) hypertension; J44.9 Chronic obstructive pulmonary disease, unspecified; Z87.891 Personal history of nicotine dependence; Z79.899 Other long term (current) drug therapy; Z88.0 Allergy status to penicillin
CPT/HCPCS: 99212; G0463

== ENCOUNTER 2019-07-04 09:40 | Emergency (ER) | payer MEDICARE ==
--- OUTSIDE RECORDS SUMMARY | 2019-07-04 09:49 | XMS REPORT | Continuity of Care Document ---
:1945 External Reference #:[id number] Author Name Sudhakar Elizabeth M.D. (transmitted by agent of provider Sergio Thornton) Address [address] [place] [id number] Care Team Providers Name Role Phone Tigist Diaz PA - Physician Contract Clerk [employer] Care Team Information Gear Technician Tigist Diaz PA - Physician Contract Clerk [employer]obile Care Team Information Gear Technician David Fernandez M.D. - Internal Care Team Information Gear Technician [phone] Medicine Problems Active Problems Provider Date Chronic [...] Use Never Used Drugs Smoking Status Reviewed: 07/04/19 Patient is a former Start Date: 1959 smoker End Date: 06/17/2014 Exercise Type/Frequency Does not exercise Exercise Type/Frequency Exercises rarely Allergies, Adverse Reactions, Alerts Active Allergies Reaction Severity Comments Date Penicillin 06/24/2018 Medications Active Medications SIG Qnty Indications Ordering Date Provider Lisinopril Take One Tablet 90tabs E11.9 Mo 11/29/2018 2.5mg By Mouth Every MD Dianne Tablets Day Pravastatin Sodium Take One Tablet 90tabs E11.9 Mo 11/29/2018 10mg By Mouth Every MD Dianne Tablets Day Cholestyramine Take One Packet 120units K31.89 Mo 12/27/2017 4gm Mixed In Fluid By MD Dianne Packet Mouth Once Daily For 2 Weeks, Then One Packet Twice A Day Mometasone Furoate apply to affected 45units L30.9 Sudhakar 11/24/2016 0.1% area twice a day Edie Elizabeth Cream for 5- 7 days as needed for dermatitis Omeprazole Take One Capsule 90caps Mo 08/28/2015 20mg By Mouth Every MD Dianne Capsules DR Day Albuterol Sulfate via neb four 50units Dianne, 08/28/2014 times a day & as MD Mo (2.5mg/3ML) 0.083% needed Nebulizer Allopurinol 1 by mouth every 30tabs M10.9 Dianne, 12/28/2011 300mg day MD Mo Tablets Terazosin HCL Take One Capsule Unknown 5mg By Mouth Every Capsules Day Finasteride Take One Tablet Unknown 5mg Tablets By Mouth Every Day Immunizations CPT Code Status Date Vaccine Lot # [id number] Given 04/30/2014 Pneumococcal Conjugate Vaccine 13 Valent For Intramuscular Use 00321 Given 01/02/2008 Tetanus And Diptheria (Td) For Adult Use Preservative Free 67878 Refused 04/14/2018 Fluzone High Dose Vital Signs Date Vital Result Comment 07/04/2019 9:12am Height 68 inches 5'8" Weight 235.00 lb Heart Rate 76 /min BP Systolic Sitting 128 mmHg BP Diastolic Sitting 76 mmHg Respiratory Rate 24 /min Pain Level 0 BMI (Body Mass Index) 35.7 kg/m2 04/25/2019 9:15am Height 68 inches 5'8" Weight 230.00 lb Heart Rate 60 /min BP Systolic Sitting 124 mmHg BP Diastolic Sitting 74 mmHg Respiratory Rate 18 /min Body Temperature 98.6 F Pain Level 0 O2 % BldC Oximetry 94 % BMI (Body Mass Index) 35.0 kg/m2 Results Test Acquired Date Facility Test Result H/L Range Note Laboratory test 04/19/2019 [facility] PSA Diagnostic 1.987 0- 4.0 [address] ng/[place] [address] [phone] Laboratory test 02/28/2019 [facility] Surgical SEE RESULT [address] [place] [address] [phone] Basic Metabolic 02/16/2019 [facility] Sodium 141 mmol/L Normal 135-[address] [place] [address] [phone] Potassium 4.3 mmol/L Normal 3.5-5.0 Chloride 106 mmol/L Normal 101-111 Co2 Carbon Dioxide 30 mmol/L Normal 22-32 Anion Gap 5 mmol/L Normal 2-11 Glucose 129 mg/dL High 70-100 Blood Urea Nitrogen 18 mg/dL Normal 6-24 Creatinine 1.04 mg/dL Normal 0.67-1.17 BUN/Creatinine Ratio 17.3 Normal 8-20 Calcium 9.0 mg/dL Normal 8.6-10.3 Egfr Non- 69.6 >60 Egfr 84.2 >60 3 Urine Microalbumin 02/16/2019 [facility] Ur Microalbumin 21.3 mg /L Random [address] (mg/L) [place] [address] [phone] Urine Creatinine 111.12 mg/dL Urine Microalbumin/Creatinine 19.1 Normal <31 Lipid Profile 02/16/2019 [facility] Triglycerides 138 mg/dL 4 (Trig/Chol/HDL) [address] [place] [address] [phone] Cholesterol 136 mg/dL 5 HDL Cholesterol 36.3 mg/dL 6 LDL Cholesterol 72 mg/dL 7 Liver Function 02/16/2019 [facility] Total Protein 6.4 g/dL Normal 6.4-8.9 Panel [address] [place] [address] [phone] Albumin 4.0 g/dL Normal 3.2-5.2 Globulin 2.4 g/dL Normal 2-4 Albumin/Globulin Ratio 1.7 Normal 1-3 Total Bilirubin 0.40 mg/dL Normal 0.2-1.0 Direct Bilirubin 0.10 mg/dL Normal 0.03-0.18 Indirect Bilirubin 0.3 mg/dL Normal 0.3-1.0 Alkaline Phosphatase 89 U/L Normal 34-104 Alt 15 U/L Normal 7-52 Ast 12 U/L Low 13-39 1 Serum levels of PSA measured using the [employer] DXI Hybritech immunoassay should not be interpreted as absolute evidence of the presence or absence of disease. The PSA value should be used in conjunction with other pertinent clinical diagnostic procedures. The values obtained with different assay methods or kits cannot be used interchangeably. 2 SEE RESULT BELOW Name: WILMER POSEY : [address]: Sudhakar Elizabeth MD Acct: [id number] Unit: [id number] AGE: 73 Location: [facility] Re02/28/19 SEX: M Status: REG REF SPEC: [id number] LISA: 02/28/19-1310 [facility] DR: Sudhakar Elizabeth MD REQ: [id number] RECD: 02/28/19 STATUS: SOUT _ ORDERED: LEVEL 4 COMMENTS: [id number] FINAL DIAGNOSIS Left tongue, biopsy: -- Squamous [...] 1040 END OF REPORT DEPARTMENT OF PATHOLOGY, [address] [place] [address] Nain Pederson M.D. Director [facility] # [id number] 3 Because ethnic data is not always readily [...] 15-29 5 Kidney failure <15 (or dialysis) 4 Desirable: <150 Borderline High: 150-199 High: 200-499 Very High: >500 5 Desirable: <200 Borderline High: 200-239 High: >239 6 Low: <40 Desirable: 40-60 High: >60 7 Desirable: <100 Near Optimal: 100-129 Borderline High: 130-159 High: 160-189 Very High: >189 Procedures Date Code Description Status 04/11/2019 14650 Binocular Microscopy Completed 02/28/2019 25263 Binocular Microscopy Completed 02/28/2019 18248 biopsy,vestibule of mouth Completed 04/24/2009 [id number] Colonoscopy Completed Medical Devices Description No Information Available Encounters Type Date Location Provider Dx Diagnosis Office Visit 04/25/2019 [facility] [place] [address].21 Leukoplakia of oral 9:30a [facility] [place] mucosa, including Sebastian tongue H62.43 Otitis externa in oth diseases classd elswhr, bilateral H92.13 Otorrhea, bilateral Office Visit 04/11/2019 1:00p [facility] [place] 355483.21 Leukoplakia of [facility] [place] oral mucosa, [place] including tongue H62.43 Otitis externa in oth diseases classd elswhr, bilateral H92.13 Otorrhea, bilateral Office Visit 03/14/2019 1:15p [facility] [place] 355483.21 Leukoplakia of C[facility] AT [facility] [place] oral mucosa, Sebastian including tongue H62.43 Otitis externa in oth diseases classd elswhr, bilateral H92.13 Otorrhea, bilateral Office Visit 02/28/2019 11:45a [facility] [place] 355483.21 Leukoplakia of C.M[facility] 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 tongue 04/25/2019 H62.43 Otitis externa in other diseases Sudhakar Elizabeth M.D. classified elsewhere, bilateral 04/25/2019 H92.13 Otorrhea, bilateral Sudhakar Elizabeth M.D. 04/11/2019 K13.21 Leukoplakia of oral mucosa, including Sudhakar Elizabeth M.D. tongue 04/11/2019 H62.43 Otitis externa in other diseases Sudhakar Elizabeth M.D. classified elsewhere, bilateral 04/11/2019 H92.13 Otorrhea, bilateral Sudhakar Elizabeth M.D. 03/14/2019 K13.21 Leukoplakia of oral mucosa, including Deyanira LaurentD. tongue 03/14/2019 H62.43 Otitis externa in other diseases Sudhakar Elizabeth M.D. classified elsewhere, bilateral 03/14/2019 H92.13 Otorrhea, bilateral Sudhakar Elizabeth, M.D. 02/28/2019 K13.21 Leukoplakia of oral mucosa, including Sudhakar Elizabeth M.D. tongue 02/28/2019 H62.43 Otitis externa in other diseases Sudhakar Elizabeth M.D. classified elsewhere, bilateral 02/28/2019 H92.13 Otorrhea, bilateral Sudhakar Elizabeth, M.D. 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 at [facility]. AT Dsegjhep46/03/2020 11:00 am - IRAIS Estrada at [facility]04/25/2019 - Sudhakar Elizabeth M.D.K13.21 Leukoplakia of oral mucosa, including tongueComments:Patient's ears certainly looks better today, there is no evidence of blockage, there is no evidence of inflammation or drainage.The lesion of the tongue, this appears to have improved slightly. Left index of suspicion for neoplasm. Suggest surveillance recheck back 2 gqpcjrJ02.43 Otitis externa in other diseases classified elsewhere, iajhmctpeI74.13 Otorrhea, bilateral Functional Status Functional Condition Comment Date Status Nebulizer - q 2-4 x per day, Cpap/Apap Machine, Bifocal Active glasses Mental Status Description No Information Available Referrals Description No Information Available
--- NOTE | 2019-07-04 09:50 | UC ---
FLU HPI - HPI Summary HPI Summary: 74 yo male presents with cough. He tells me that he has COPD and has had PNA several times. On 06/30 "out of nowhere" he came down with fatigue, body aches, sinus pressure, and cough. Over the last 2 days has had more productive cough and feeling short of breath. He has been using his albuterol inhaler and albuterol nebulizer at home with good intermittent relief, but symptoms return soon after. He has felt feverish, but has not taken his temperature. Did not get a flu shot this year. Denies sore throat, chest pain, abdominal pain, n/v - History of Current Complaint Stated Complaint: FLU SYMP Time Seen by Provider: 07/04/19 09:50 Hx Obtained From: Patient Onset/Duration: Sudden Onset Severity Currently: Moderate Severity Initially: Moderate Pain Intensity: 7 Pain Scale Used: 0-10 Numeric - Allergy/Home Medications Allergies/Adverse Reactions: Allergies Allergy/AdvReac Type Severity Reaction Status Date / Time Penicillins Allergy See Comment Verified 07/04/19 10:00 Home Medications: Home Medications Cholestyramine/Aspartame [Cholestyramine Light Powder] 4 gm PO DAILY 07/04/19 [ History Confirmed 07/04/19] PMH/Surg Hx/FS Hx/Imm Hx Endocrine History: Dyslipidemia Cardiovascular History: Hypertension Respiratory History: COPD GI/ History: Gastroesophageal Reflux - Surgical History Surgical History: Yes Surgery Procedure, Year, and Place: 1999 lower back surgery, LEFT EAR SURG--- 2016 - Family History Known Family History: Negative: Cardiac Disease, Hypertension, Diabetes - Social History Lives: With Family Alcohol Use: None Substance Use Type: None Smoking Status (MU): Former Smoker Amount Used/How Often: 1 ppd Length of Time of Smoking/Using Tobacco: 56 YRS Have You Smoked in the Last Year: No When Did the Patient Quit Smoking/Using Tobacco: 06/17/14 Review of Systems All Other Systems Reviewed And Are Negative: No Constitutional: Positive: Fatigue, Other - Body aches Skin: Positive: Negative Eyes: Positive: Negative ENT: Positive: Sinus Congestion, Sinus Pain/Tenderness Respiratory: Positive: Shortness Of Breath, Cough Cardiovascular: Positive: Negative Gastrointestinal: Positive: Negative Neurovascular: Positive: Negative Neurological: Positive: Negative Psychological: Positive: Negative Physical Exam - Summary Physical Exam Summary: GENERAL: NAD. WDWN. No pain distress. SKIN: No rashes, sores, lesions, or open wounds. HEENT: Head: AT/NC Eyes: EOM intact. Conjunctiva clear without inflammation or discharge. Ears: Hearing grossly normal. RIGHT ear with cotton wick device in place from ENT. LEFT TM intact, no bulging, erythema, or edema. Nose: Nasal mucosa pink and moist. NTTP maxillary and frontal sinus. Throat: Posterior oropharynx without exudates, erythema, or tonsillar enlargement. Uvula midline. NECK: Supple. Nontender. No lymphadenopathy. CHEST: Moderate wheezing throughout with coarse breath sounds at lung bases. Mild increased effort of breathing. CV: RRR. Pulses intact. Cap refill <2seconds NEURO: Alert. PSYCH: Age appropriate behavior. Triage Information Reviewed: Yes Vital Signs: Vital Signs: Temp Pulse Resp BP Pulse Ox 100.0 F 92 24 130/48 94 07/04/19 09:54 07/04/19 09:54 07/04/19 09:54 07/04/19 09:54 07/04/19 09:54 Vital Signs Reviewed: Yes Diagnostics - Radiology CXR Radiology Interpretation Completed By: Radiologist Summary of Radiographic Findings: IMPRESSION: No active cardiopulmonary disease is noted. Flu Course/Dx - Course Course Of Treatment: CXR as above. Pt states his O2% usually is around 94-95% --- confirmed this with past vital signs. In the clinic he was given a duoneb treatment with dexamethasone and felt much better and was able to take a deeper breath. Lung sounds mildly improved. POC flu negative. Will dc with doxycycline and prednisone. Strongly advised that if he worsens or develops a fever to go to the ER immediately - pt voiced understanding and agrees with the plan - Differential Dx/Diagnosis Provider Diagnosis: COPD exacerbation Discharge ED - Sign-Out/Discharge Documenting (check all that apply): Patient Departure All imaging exams completed and their final reports reviewed: Yes - Discharge Plan Condition: Stable Disposition: HOME Prescriptions: Albuterol 2.5MG/3ML (0.083%)* [Ventolin 2.5 MG/3 ML NEB.FELIPA*] 2.5 mg INH Q6H PRN #30 neb.felipa PRN Reason: Sob/Wheezing DOXYcycline CAP(*) [DOXYcycline 100MG CAP(*)] 100 mg PO BID #14 cap predniSONE 20 mg TAB [Deltasone 20 MG TAB*] 40 mg PO DAILY #10 tab Patient Education Materials: COPD (Chronic Obstructive Pulmonary Disease) (ED) Referrals: Tigist Diaz PA [Primary Care Provider] - Additional Instructions: If you develop a fever, shortness of breath, chest pain, new or worsening symptoms - please call your PCP or go to the ED immediately. Start the prednisone tomorrow as you were given a dose today - Billing Disposition and Condition Condition: STABLE Disposition: Home
[2019-07-04 10:00] VITALS: BP 130/48
[2019-07-04] MEDS ORDERED: Dexamethasone TAB* 4 MG PO ONE (10:10)
[2019-07-04] MEDS ORDERED: Albuterol/Ipratropium NEB.SOL* Albuterol 2.5 MG/Ipratropium 0.5 MG 3 ML INH ONE (10:10)
[2019-07-04 10:19] LABS: Influenza A Molecular NEGATIVE (Negative); Influenza B Molecular NEGATIVE (Negative)
== END 2019-07-04 10:48 | disposition home or self-care (01) ==
LOC: UCCORT 09:40
DX: J44.1 Chronic obstructive pulmonary disease with (acute) exacerbation (principal); I10 Essential (primary) hypertension; Z88.0 Allergy status to penicillin; Z87.891 Personal history of nicotine dependence
CPT/HCPCS: 71046; 99212; A9270-GY; G0463; J8540

== ENCOUNTER 2021-07-18 07:16 | Observation (INO) ==
[~2021-07-18 07:16] MED LIST changes: +Buffered Lidocaine 1% SYRIN 1 ml INTRADERM ONE; -Bupivacaine 0.25% SDV* 30 ML ONE; +Lactated Ringers 1000 ml BAG 1,000 ML IV SCH
[2021-07-18] MEDS ORDERED: fentaNYL 100 mcg/2 ml 50 MCG/ML VIAL ONE ×2 (08:40→12:26)
[2021-07-18] MEDS ORDERED: Propofol 10 MG/ML 20 ML BTL ONE (08:40)
[2021-07-18] MEDS ORDERED: Midazolam 2 mg/2 ml VIAL 1 mg/ml 2 ml VIAL (2 mg) ONE (08:40)
[2021-07-18] MEDS ORDERED: Rocuronium 50 mg VIAL 10 mg/ml 5 ml VIAL (50 mg) ONE (08:40)
[2021-07-18] MEDS ORDERED: Metoclopramide 5 MG/ML VIAL (10 mg) ONE (08:40)
[2021-07-18] MEDS ORDERED: Ondansetron 4 mg VIAL 2 MG/ML 2 ml VIAL ONE ×2 (08:40→16:58)
[2021-07-18] MEDS ORDERED: Methylene Blue 0.5 % 50 MG/10 ML AMP IV ONE (09:38)
[2021-07-18] MEDS ORDERED: Lidocaine 2% w/ EPI 1:200,000 MPF 20 ML SDV VIAL ONE ×2 (09:38→12:07)
[2021-07-18] MEDS ORDERED: Phenylephrine 40 mcg/mL 10mL (400mcg) SYRINGE ONE (10:14)
[2021-07-18] MEDS ORDERED: Dexamethasone IV 4 MG/ML VIAL 1 ml VIAL ONE ×3 (11:03→16:58)
[2021-07-18] MEDS ORDERED: EPHEDrine (Pressors) 50 MG/ML VIAL ONE (11:03)
[2021-07-18] MEDS ORDERED: Lidocaine 2% PF 5 ML VIAL ONE (11:16)
[2021-07-18] MEDS ORDERED: HYDROmorphone 1 MG/1 ML SYRINGE IV PRN (11:33)
[2021-07-18] MEDS ORDERED: Naloxone 0.4 mg VIAL 0.4 mg/ml 1 ml VIAL IV PRN (11:33)
[2021-07-18] MEDS ORDERED: Scopolamine 1 mg/72hr PATCH TRANSDERM PRN (11:33)
[2021-07-18] MEDS ORDERED: Ondansetron 4 mg VIAL 2 MG/ML 2 ml VIAL IV PRN ×2 (11:33→13:30)
[2021-07-18] MEDS ORDERED: Acetaminophen IV 1 GM/100ML 100 ML IV ONE (11:33)
[2021-07-18] MEDS ORDERED: Albuterol 2.5mg/3 ml (0.083%) NEB.SOLN INH PRN (13:33)
[2021-07-18] MEDS: HYDROcodone/ACET. 7.5/325 LIQ 15 ML UDC PO PRN (17:28)
[2021-07-19 05:04] LABS: ABS Lymphocytes 0.4 10^3/ul (1.0-4.8); ABS Monocytes 1.2 10^3/ul (0-0.8); ABS Neutrophils 18.7 10^3/ul (1.5-7.7); Eosinophil % 0.1 %; Hematocrit 34 % (42-52); Hemoglobin 11.4 g/dL (14.0-18.0); Lymphocyte % 2.2 %; Mean Corpuscular HGB Conc 33 g/dL (31-36); Mean Corpuscular Hemoglobin 30 pg (27-31); Mean Corpuscular Volume 90 fL (80-94); Mean Platelet Volume 9.1 fL (7.4-10.4); Platelet Count 248 10^3/uL (150-450); Red Blood Count 3.81 10^6 /uL (4.18-5.48); Red Cell Distribution Width 16 % (10-15); White Blood Count 20.3 10^3/uL (3.5-10.8)
[2021-07-19] MEDS ORDERED: Prochlorperazine 5 mg/ml 2 ml VIAL (10 mg) IV PRN (08:04)
[2021-07-19] MEDS: CMCS: Pravastatin 20 mg TAB (NF) PO SCH (08:26)
[2021-07-20 06:08] LABS: Hematocrit 35 % (42-52); Hemoglobin 11.6 g/dL (14.0-18.0); Mean Corpuscular HGB Conc 33 g/dL (31-36); Mean Corpuscular Hemoglobin 30 pg (27-31); Mean Corpuscular Volume 91 fL (80-94); Mean Platelet Volume 9.4 fL (7.4-10.4); Platelet Count 216 10^3/uL (150-450); Red Blood Count 3.91 10^6 /uL (4.18-5.48); Red Cell Distribution Width 17 % (10-15); White Blood Count 14.3 10^3/uL (3.5-10.8)
[2021-07-20] MEDS: HYDROcodone/ACET. 7.5/325 LIQ 15 ML UDC PO PRN (09:05)
[2021-07-20] MEDS: CMCS: Pravastatin 20 mg TAB (NF) PO SCH (09:09)
[2021-07-20 12:00] VITALS: BP 98/55
== END 2021-07-20 14:15 | disposition home or self-care (01) ==
LOC: SSU → AA 07:16 → INTOOBSV 07:16 → EDSTATUS 09:00 → SSU 15:18
PROVIDERS: ADMIT Otolaryngology; ATTEND Hospitalist